=== PATIENT | female | born 1940 | race Two or more races ===

== ENCOUNTER 2024-05-15 13:31 | Inpatient (IN) | payer OTHER ==
[~2024-05-15] VITALS: Ht 154.9 cm; Wt 70.3 kg
[~2024-05-15 13:31] MED LIST: CARVEDILOL ER40 MG; COZAAR100 MG PO; CRESTOR10 MG PO; ECOTRIN81 MG; FENOFIBRATE50 MG; GLIPIZIDE XL10 MG; JANUVIA50 MG PO; LANTUS SOL100 UNIT/1; ZETIA10 MG
[2024-05-15] MEDS ORDERED: GRALISE600 MG (14:42)
[2024-05-15] MEDS ORDERED: AMLODIPINE BESYL5 MG PO (14:44)
[2024-05-15] MEDS ORDERED: 0.9 % SODIUM CHLORIDE 1,000 ML IV SCH ×2 (15:30→20:00)
[2024-05-15] MEDS ORDERED: BARIUM SULFATE 450 ML ORAL.SUSP PO ONE (15:41)
[2024-05-15 16:30] LABS: HEMATOCRIT 37.2 % (36.0-45.00); HEMOGLOBIN 12.6 g/dL (12.0-15.00); MEAN CELL VOLUME 89.4 fL (80.00-100.00); MEAN CORPUSCULAR HEMOGLOBIN 30.2 pg (27.00-32.0); MEAN CORPUSCULAR HGB CONC 33.8 g/dl (32.0-36.0); PLATELET COUNT 155 K/uL (150-450); RED BLOOD COUNT 4.16 M/uL (4.00-6.00)
[2024-05-15 17:03] LABS: CALCIUM 10.6 mg/dL (8.5-10.1); CREATININE SERUM 1.9 mg/dL (0.55-1.02); GFR 25.12; POTASSIUM 4.96 mEq/L (3.5-5.1)
[2024-05-15] MEDS ORDERED: FAMOTIDINE/PF 20 MG in 0.9 % SODIUM CHLORIDE 8 ML IV PUSH STA (17:19)
[2024-05-15] MEDS ORDERED: HYOSCYAMINE SULFATE 0.125 MG TAB.SUBL ONE (17:27)
[2024-05-15] MEDS ORDERED: FAMOTIDINE/PF 20 MG/2 ML VIAL ONE (17:27)
[2024-05-15] MEDS ORDERED: PIPERACILLIN/TAZOBACTAM SODIUM 3.375 GM VIAL IV ONE (17:30)
[2024-05-15] MEDS ORDERED: HYOSCYAMINE SULFATE 0.125 MG TAB.SUBL SL ONE (17:30)
[2024-05-15 18:15] LABS: INR 1.11; PARTIAL THROMBOPLASTIN TIME 27.3 SECONDS (22.0-34.0); PROTHROMBIN TIME 11.6 SECONDS (9.0-11.5)
[2024-05-15 18:19] LABS: ALBUMIN 3.5 gm/dL (3.4-5.0); BILIRUBIN TOTAL 0.53 mg/dL (0.3-1.2); BILIRUBIN,CONJUGATED 0.15 mg/dL (0.0-0.2); BILIRUBIN,UNCONJUGATED 0.38 mg/dL (0.0-0.6); TOTAL PROTEIN 7.7 gm/dL (6.4-8.2)
[2024-05-15] MEDS ORDERED: METRONIDAZOLE/SODIUM CHLORIDE 100 ML IV SCH (20:07)
[2024-05-15] MEDS ORDERED: DEXTROSE 50 % IN WATER 0.5 G/ML DISP.SYRIN IV PRN (20:15)
[2024-05-15] MEDS ORDERED: ACETAMINOPHEN 500 MG GEL..CAP PO PRN (20:15)
[2024-05-15] MEDS ORDERED: INSULIN LISPRO 1,000 UNIT/10 ML UNITS SUBCUTANEO PRN (20:15)
[2024-05-15] MEDS ORDERED: CIPROFLOXACIN IN 5 % DEXTROSE 200 ML IV SCH (21:00)
[2024-05-15] MEDS ORDERED: CARVEDILOL 25 MG TABLET PO SCH (21:00)
[2024-05-15] MEDS ORDERED: CIPROFLOXACIN IN 5 % DEXTROSE 400 MG/200 ML PIGGYBAG IV ONE (22:05)
[2024-05-15] MEDS ORDERED: METRONIDAZOLE/SODIUM CHLORIDE 500 MG/100 ML PIGGYBACK IV ONE (22:05)
[2024-05-15 23:15] LABS: URINE APPEARANCE Clear; URINE BACTERIA 125.9 uL (0.0-1933); URINE BILIRRUBIN Negative (NEGATIVE); URINE BLOOD Moderate; URINE COLOR Yellow; URINE EPITHELIAL CELLS 13.7 uL (0.0-38.8); URINE GLUCOSE Negative (NEGATIVE); URINE LEUKOCYTE Negative; URINE NITRATE Negative; URINE PROTEIN Trace (NEGATIVE); URINE UROBILINOGEN 0.2 E.U./dl; URINE WBC 6.3 uL (0.0-23.2)
[2024-05-15 23:19] LABS: URINE RBC 1.3 uL (0.0-20.8)
[2024-05-15 23:33] LABS: ob POSITIVE (NEGATIVE)
[2024-05-15 23:34] LABS: FECAL LEUKOCYTES POSITIVE (NEGATIVE)
[2024-05-16] MEDS ORDERED: INSULIN LISPRO 1,000 UNIT/10 ML UNITS SUBCUTANEO PRN (07:00)
[2024-05-16] MEDS ORDERED: LOSARTAN POTASSIUM 100 MG TABLET PO SCH (09:00)
[2024-05-16] MEDS ORDERED: PANTOPRAZOLE SODIUM 40 MG/VIAL VIAL IV SCH (09:00)
[2024-05-16] MEDS ORDERED: AMLODIPINE BESYLATE 5 MG TABLET PO SCH (17:00)
[2024-05-17 06:55] LABS: HEMATOCRIT 28.9 % (36.0-45.00); MEAN CELL VOLUME 87.1 fL (80.00-100.00); MEAN CORPUSCULAR HGB CONC 34.3 g/dl (32.0-36.0); RED BLOOD COUNT 3.31 M/uL (4.00-6.00); RED CELL DISTRIBUTION WIDTH 15.4 % (11.5-14.5)
[2024-05-17 06:59] LABS: ALBUMIN 2.6 gm/dL (3.4-5.0); BILIRUBIN TOTAL 0.6 mg/dL (0.3-1.2); CALCIUM 8.3 mg/dL (8.5-10.1); CREATININE SERUM 1.78 mg/dL (0.55-1.02); GFR 27.09; MEAN CORPUSCULAR HEMOGLOBIN 29.9 pg (27.00-32.0); PLATELET COUNT 107 K/uL (150-450); POTASSIUM 4.1 mEq/L (3.5-5.1); TOTAL PROTEIN 5.6 gm/dL (6.4-8.2)
[2024-05-17 07:00] LABS: HEMOGLOBIN 9.9 g/dL (12.0-15.00)
[2024-05-17] MEDS ORDERED: SOD FERRIC GLUC COMPLX/SUCROSE 62.5 MG in 0.9 % SODIUM CHLORIDE 50 ML IV SCH (09:00)
[2024-05-18] MEDS ORDERED: INSULIN NPH HUM/REG INSULIN HM 1,000 UNIT/10 ML UNITS SUBCUTANEO SCH (08:00)
[2024-05-18] MEDS ORDERED: CIPROFLOXACIN IN 5 % DEXTROSE 200 ML IV SCH (09:00)
[2024-05-18] MEDS ORDERED: SODIUM CHLORIDE 0.45 % 1,000 ML IV SCH (15:00)
[2024-05-18] MEDS ORDERED: MELATONIN 5 MG TABLET PO SCH (22:15)
[2024-05-19 06:24] LABS: HEMATOCRIT 25.7 % (36.0-45.00); MEAN CELL VOLUME 87.8 fL (80.00-100.00); MEAN CORPUSCULAR HGB CONC 34.3 g/dl (32.0-36.0); RED BLOOD COUNT 2.92 M/uL (4.00-6.00); RED CELL DISTRIBUTION WIDTH 15.3 % (11.5-14.5)
[2024-05-19 06:32] LABS: MEAN CORPUSCULAR HEMOGLOBIN 30.1 pg (27.00-32.0); PLATELET COUNT 116 K/uL (150-450)
[2024-05-19 06:33] LABS: HEMOGLOBIN 8.8 g/dL (12.0-15.00)
[2024-05-19 06:55] LABS: ALBUMIN 2.3 gm/dL (3.4-5.0); BILIRUBIN TOTAL 0.38 mg/dL (0.3-1.2); CALCIUM 7.8 mg/dL (8.5-10.1); CREATININE SERUM 1.63 mg/dL (0.55-1.02); GFR 29.98; GLOBULINA 2.6 G/DL (2.4-3.5); POTASSIUM 3.66 mEq/L (3.5-5.1); TOTAL PROTEIN 4.9 gm/dL (6.4-8.2)
[2024-05-19] MEDS ORDERED: INSULIN NPH HUM/REG INSULIN HM 1,000 UNIT/10 ML UNITS SUBCUTANEO SCH (08:00)
[2024-05-19] MEDS ORDERED: CEFEPIME HCL 2,000 MG VIAL IV SCH (17:00)
[2024-05-20 10:41] LABS: HEMATOCRIT 31.7 % (36.0-45.00); MEAN CELL VOLUME 87.6 fL (80.00-100.00); MEAN CORPUSCULAR HGB CONC 34.2 g/dl (32.0-36.0); RED BLOOD COUNT 3.62 M/uL (4.00-6.00); RED CELL DISTRIBUTION WIDTH 15.2 % (11.5-14.5)
[2024-05-20 10:44] LABS: HEMOGLOBIN 10.8 g/dL (12.0-15.00); MEAN CORPUSCULAR HEMOGLOBIN 29.8 pg (27.00-32.0); PLATELET COUNT 141 K/uL (150-450)
[2024-05-21 09:20] LABS: HEMATOCRIT 30.8 % (36.0-45.00); HEMOGLOBIN 10.5 g/dL (12.0-15.00); MEAN CELL VOLUME 88.2 fL (80.00-100.00); PLATELET COUNT 140 K/uL (150-450); RED BLOOD COUNT 3.49 M/uL (4.00-6.00); RED CELL DISTRIBUTION WIDTH 15.4 % (11.5-14.5)
[2024-05-22 06:42] LABS: ALBUMIN 2.3 gm/dL (3.4-5.0); BILIRUBIN TOTAL 0.38 mg/dL (0.3-1.2); CREATININE SERUM 1.23 mg/dL (0.55-1.02); GFR 41.5; GLOBULINA 2.8 G/DL (2.4-3.5); PHOSPHOROUS 2.5 mg/dL (2.5-4.9); POTASSIUM 3.82 mEq/L (3.5-5.1); TOTAL PROTEIN 5.1 gm/dL (6.4-8.2)
[2024-05-22 06:50] LABS: C-REACTIVE PROTEIN 1.98 MG/DL (0.00-0.29)
[2024-05-22] MEDS ORDERED: PROTONIX40 MG PO (11:47)
[2024-05-22] MEDS ORDERED: INTEGRA PLUS C1 EACH PO (11:47)
== END 2024-05-22 12:42 | disposition home or self-care (01) | DRG 392 ==
LOC: ER 13:32 → MEDI 20:34 → MEDJ 20:34 → SEC-K 20:49 → MEDI 20:59
PROVIDERS: Emergency Medicine; General Practice; Internal Medicine Infectious Disease; Internal Medicine Nephrology; ADMIT Internal Medicine; ATTEND Internal Medicine
PROC: BW21YZZ Computerized Tomography (CT Scan) of Abdomen and Pelvis using Other Contrast (ICD-10-PCS; principal; 2024-05-15)
PROC: 30233N1 Transfusion of Nonautologous Red Blood Cells into Peripheral Vein, Percutaneous Approach (ICD-10-PCS; 2024-05-19)
DX: K52.89 Other specified noninfective gastroenteritis and colitis (principal); K92.2 Gastrointestinal hemorrhage, unspecified; N17.9 Acute kidney failure, unspecified; E86.0 Dehydration; D64.89 Other specified anemias; D69.6 Thrombocytopenia, unspecified; E11.65 Type 2 diabetes mellitus with hyperglycemia; I12.9 Hypertensive chronic kidney disease with stage 1 through stage 4 chronic kidney disease, or unspecified chronic kidney disease; N18.30 Chronic kidney disease, stage 3 unspecified; Z79.4 Long term (current) use of insulin; Z79.84 Long term (current) use of oral hypoglycemic drugs